=== PATIENT | male | born 1960 | race Caucasian/White ===

== ENCOUNTER 2016-11-19 10:43 | Inpatient (IN) | payer OTHER ==
[2016-11-01 09:04] VITALS: BMI 47.0
--- NOTE | 2016-11-01 09:27 | PAT Medication Instructions ---
Service Date Nov 01, 2016. Current Home Medication List Diphenhydramine-Acetaminophen (Tylenol Pm), 2 TAB PO HS Fluoxetine (Prozac), 20 MG PO QAM Levothyroxine Sodium (Synthroid), 25 MCG PO QAM Medication Instructions For Your Scheduled Surgery - Take the following medications the morning of surgery with a sip of water OTHERWISE NOTHING TO EAT OR DRINK AFTER MIDNIGHT: Levothyroxine Sodium (Synthroid), 25 MCG PO QAM Fluoxetine (Prozac), 20 MG PO QAM - Take the following medications as scheduled the night before surgery: Diphenhydramine-Acetaminophen (Tylenol Pm), 2 TAB PO HS If you have any questions please call us at [phone] or [phone] or [phone]
--- NOTE | 2016-11-01 10:11 | DIAGNOSTIC IMAGING REPORT ---
TWO VIEW CHEST CLINICAL HISTORY: Preoperative examination. FINDINGS: PA and lateral chest radiographs are obtained. No prior studies are available for comparison at the time of dictation. Of the Examination is degraded by large body habitus. The PA view is degraded by apical and out of positioning. The heart is top normal for projection. The pulmonary vasculature is noncongested. The lungs and pleural spaces are clear. There is no pneumothorax. The bony thorax appears intact. Degenerative change is seen throughout the thoracic spine. Arthritic change is present in the left shoulder. IMPRESSION: No active disease in the chest. Electronically signed by: Simon Cardenas M.D. 11/01/2016 10:10 AM Dictated Date/Time: 11/01/2016 10:09 AM
[2016-11-01 10:13] LABS: BASO % 0.9 %; BASO ABS # 0.05 K/uL (0-0.2); COMPLETE YES; EOS % 1.6 %; HEMATOCRIT 41.2 % (42-52); IG% 0.5 %; LYMPH % 36.2 %; LYMPH ABS # 2.01 K/uL (1.2-3.4); MEAN CELL VOLUME 87.3 fL (80-100); MEAN CORPUSCULAR HEMOGLOBIN 28.4 pg (25-34); MEAN CORPUSCULAR HGB CONC 32.5 g/dl (32-36); MEAN PLATELET VOLUME 10.7 fL (7.4-10.4); MONO % 6.8 %; PLATELET COUNT 231 K/uL (130-400); RED BLOOD COUNT 4.72 M/uL (4.7-6.1); WHITE BLOOD COUNT 5.56 K/uL (4.8-10.8)
[2016-11-01 10:23] LABS: PARTIAL THROMBOPLASTIN RATIO 1.1; PROTHROMBIN TIME (PATIENT) 10.7 SECONDS (9.0-12.0)
[2016-11-01 10:31] LABS: BUN/CREATININE RATIO 25.6 (10-20); CALCIUM 8.8 mg/dl (8.5-10.1); CREATININE 0.89 mg/dl (0.60-1.40); POTASSIUM 4.2 mmol/L (3.5-5.1)
[2016-11-01 10:32] LABS: C-REACTIVE PROTEIN 1.08 mg/dl (0-0.29)
[2016-11-01 11:44] LABS: ESTIMATED AVERAGE GLUCOSE 120 mg/dl; HA1C FLAG Normal (Normal)
--- NOTE | 2016-11-15 11:56 | HISTORY & PHYSICAL EXAMINATION ---
DATE OF ADMISSION: 11/19/2016 CHIEF COMPLAINT: Left hip pain. HISTORY OF PRESENT ILLNESS: The patient is a 56-year-old gentleman from [place] who presents for surgical treatment of his left hip. He has a 2-year history of markedly increased left hip pain and discomfort to the point he has trouble getting around even with a cane for the past year. He has been seeing Dr. Nation and had an injection which helped very temporarily. Pain has become more disabling over time. He was asked to lose some weight before surgery. He lost about 70 pounds, but does not feel like he can lose any more. His pain is disabling. He has got groin and thigh pain. He cannot put his shoes and socks on. Walking tolerance is a block at best. He would like to have his left hip fixed. PAST MEDICAL HISTORY: 1. Hypothyroidism. 2. Sleep apnea with CPAP machine. 3. Obesity. PAST SURGICAL HISTORY: Carpal tunnel surgery. ALLERGIES: None. CURRENT MEDICINES: 1. Synthroid 25 mcg a day. 2. Fluoxetine 20 mg a day for anxiety. SOCIAL HISTORY: A 56-year-old gentleman. He is on [employer] disability. Lives by himself. He is . Came to clinic with his daughter. Rare alcohol intake. FAMILY HISTORY: Noncontributory. REVIEW OF SYSTEMS: Negative for diabetes, neurologic problems, vascular problems or bleeding disorders. Denies any chest pain, no shortness of breath. No history of DVT or PE. No fevers or weight loss. PHYSICAL EXAMINATION: GENERAL: Reveals a pleasant, middle-aged male. He looks to be in reasonably good health. HEAD, EYES, EARS, NOSE, AND THROAT EXAMINATION: Benign. NECK: Supple. No lymphadenopathy. LUNGS: Clear to auscultation. HEART: Regular rate and rhythm. ABDOMEN: Soft, nontender, nondistended. EXTREMITY EXAMINATION: Grossly neurovascularly intact except as follows: Examination of the left hip reveals the patient walks with a markedly antalgic gait. He comes in using a cane and even has trouble walking with it. His left leg is about 0.5 cm short compared to the right but it is difficult to assess due to his flexion contracture. He has got marked pain and stiffness with any type of hip motion. X-RAYS: X-rays of the left hip were reviewed. It shows advanced left hip DJD. He has complete loss of his joint space. He has got crumbling of the femoral head and cystic changes in the femoral head and acetabulum. He looks to have quite a bit disuse osteopenia of the femur. ASSESSMENT: A 56-year-old male with a 2-year history of markedly increased left hip pain and discomfort consistent with advanced hip arthritis. It does look like there is some degree of inflammatory component. We did check a sed rate and C-reactive protein, which are slightly high, but I do not think this is an infectious process. PLAN: We talked about treatment options. He would like to have his hip replaced. We will take him to the operating room and do a left total hip replacement. The risks and benefits of this procedure were explained to the patient and include but not limited to DVT, PE, , infection, neurological injury, vascular injury, bleeding problem, pain, limited range of motion, stiffness, failure to relieve symptoms, incomplete relief of symptoms, need for further surgery in the future, fracture, leg length inequality, nerve palsy, dislocation, etc. The patient understands and desires to proceed. Informed consent was obtained. As far as discharge plans, he is planning to be discharged hopefully to [facility] for a brief rehab stay postoperatively. We may have to put a cemented stem in his femur due to his poor bone stock. We will determine that at the time of surgery. I will see him back 2 weeks postop.
[~2016-11-19] VITALS: Ht 162.6 cm; Wt 124.7 kg
[2016-11-19] VITALS (12 sets, daily range): BP systolic 105–140; BP diastolic 42–76; PULSE 68–82; TEMP 36.3–37; O2SAT 93–98; Ht 162.6 cm; Wt 124.7 kg
[~2016-11-19 10:43] MED LIST: ACETAMINOPHEN 500 MG TAB PO SCH; BUPIVACAINE 0.5 % 5 MG/1 ML PF 10ML VIAL ONE; CEFAZOLIN 2000 MG/60 ML D5W 60 ML IV SCH; DIPH-437 PO; FAMOTIDINE 20 MG TAB PO SCH; FLUO20CA35 PO; GABAPENTIN 300 MG CAP PO SCH; LACTATED RINGER'S 1000ML 1,000 ML IV SCH; LACTATED RINGER'S 1000ML IV SCH; LEVO25TA PO; METOCLOPRAMIDE HCL 10 MG TAB PO SCH; SCOPOLAMINE 1.5 MG TDSY TD SCH; TRANEXAMIC ACID INJ 1,000 MG in SODIUM CHLORIDE 0.9% 100ML 100 ML IV SCH
--- NOTE | 2016-11-19 11:22 | History & Physical Bridge Note ---
H&P Re-Evaluation Bridge Note: I have examined the patient, reviewed the History & Physical and in the interval since the performance of the History & Physical I have noted the following changes of clinical significance: No changes noted
[2016-11-19] MEDS ORDERED: FENTANYL CITRATE INJ 50 MCG/1 ML 2 ML VIAL ONE (12:09)
[2016-11-19] MEDS ORDERED: MoRPHine SULFATE PF 1 MG/ML 10 ML AMP/VIAL ONE (12:09)
[2016-11-19] MEDS ORDERED: MIDAZOLAM HCL 1 MG/ML 2ML VIAL ONE ×3 (12:09→13:57)
[2016-11-19] MEDS ORDERED: LACTATED RINGER'S 1000ML 1,000 ML IV PRN (12:56)
[2016-11-19] MEDS ORDERED: ONDANSETRON INJ 2 MG/ML 2 ML VIAL IV PRN ×2 (13:00→15:30)
[2016-11-19] MEDS ORDERED: FENTANYL CITRATE INJ 50 MCG/1 ML 2 ML VIAL IV PRN (13:00)
[2016-11-19] MEDS: BUPIVACAINE/EPINEPHRINE 0.5% MPF 1:200,000 30 ML VIAL ONE ×2 (13:21→14:22)
[2016-11-19] MEDS ORDERED: BACITRACIN 50000 UNIT VIAL ONE (13:21)
[2016-11-19] MEDS ORDERED: CEFAZOLIN SOD 1 GM VIAL ONE (13:58)
[2016-11-19] MEDS ORDERED: NALOXONE HCL INJ 0.08 MG in SYRINGE 1.8 ML IV PRN (15:22)
[2016-11-19] MEDS ORDERED: SODIUM CHLORIDE 0.9% 1000ML 1,000 ML IV PRN (15:22)
[2016-11-19] MEDS ORDERED: NALBUPHINE HCL INJ 10 MG/ML AMP IV PRN (15:30)
[2016-11-19] MEDS ORDERED: MoRPHine SULFATE PF 1 MG/ML 10 ML AMP/VIAL EPI PRN (15:30)
[2016-11-19] MEDS ORDERED: MEPERIDINE HCL 25 MG/ML CARP IV PRN (15:30)
[2016-11-19] MEDS ORDERED: NALOXONE HCL 0.4 MG/1 ML VIAL/CARP IV PRN (15:30)
[2016-11-19] MEDS ORDERED: PROMETHAZINE HCL INJ 25 MG in SODIUM CHLORIDE 0.9% 50ML 50 ML IV PRN (15:30)
[2016-11-19] MEDS ORDERED: MoRPHine SULFATE 2 MG/ML CARP IV PRN (15:30)
[2016-11-19] MEDS ORDERED: DiphenhydrAMINE HCL 50 MG/ML VIAL IV PRN (15:30)
[2016-11-19] MEDS ORDERED: NO NARCOTICS OR SEDATIVES SCH (15:30)
--- NOTE | 2016-11-19 15:47 | [facility] Post Operative Brief Note ---
Immediate Operative Summary Operative Date Nov 19, 2016. Pre-Operative Diagnosis Left Hip Advanced Degenerative Joint Disease Post-Operative Diagnosis Left Hip Advanced Degenerative Joint Disease Procedure(s) Performed Left Uncemented Total Hip Replacement Surgeon Dr. Dale [employer] Surgeon(s) KEVIN Miranda Estimated Blood Loss 400 cc Findings Severe Hip DJD Fluids (cc crystalloids) 1800 cc Specimens A. Left Femoral Head Drains None Anesthesia Spinal Complication(s) None Disposition Recovery Room / PACU
[2016-11-19] MEDS ORDERED: MAGNESIUM HYDROXIDE SUSP 30 ML UDC PO PRN (16:00)
[2016-11-19] MEDS ORDERED: ALUMINUM/MAGNESIUM/SIMETH (MAALOX MAX) 30 ML UDC PO PRN (16:00)
[2016-11-19] MEDS ORDERED: SILVER SULFADIAZINE 1% CR 50 GM JAR EXT PRN (16:00)
[2016-11-19] MEDS ORDERED: BISACODYL 10 MG SUPP PR PRN (16:00)
--- NOTE | 2016-11-19 16:12 | Anesthesiology Progress Note ---
Anesthesia Post Op Note Date & Time Nov 19, 2016 at 16:11 Vital Signs Pain Intensity: 0 Vital Signs Past 12 Hours Date Time Temp Pulse Resp B/P Pulse Ox O2 Delivery O2 Flow Rate FiO2 11/19/16 16:05 64 16 131/83 98 Nasal Cannula 2 11/19/16 15:55 65 16 111/76 99 Mask 10 11/19/16 15:46 36.6 67 16 131/62 100 Mask 10 11/19/16 11:13 36.7 82 20 118/42 97 Room Air Notes Mental Status: alert / awake / arousable, participated in evaluation Pt Amnestic to Procedure: Yes Nausea / Vomiting: adequately controlled Pain: adequately controlled Airway Patency, RR, SpO2: stable & adequate BP & HR: stable & adequate Hydration State: stable & adequate Neuraxial Anesthesia: was administered, sensory block is resolving Anesthetic Complications: no major complications apparent
--- NOTE | 2016-11-19 16:43 | DIAGNOSTIC IMAGING REPORT ---
LEFT PELVIS/UNILATERAL HIP 1 VIEW CLINICAL HISTORY: IN PACU - A/P PELVIS and LATERAL HIP INCLUDING ALL OF IMPLANT hip replacement COMPARISON: None. DISCUSSION: Patient is status post total hip arthroplasty. Good contact between prosthetic and underlying bone. There is no evidence for soft tissue swelling. IMPRESSION: Anatomic alignment status post total left hip arthroplasty Electronically signed by: Kvng Fernández M.D. 11/19/2016 4:41 PM Dictated Date/Time: 11/19/2016 4:40 PM
[2016-11-19] MEDS: CHECK SCOPOLAMINE PATCH PLACEMENT SCH ×2 (17:47→23:39)
--- NOTE | 2016-11-19 18:29 | PROGRESS NOTE ---
DATE: 11/19/2016 SUBJECTIVE: A 56-year-old gentleman postop from a left total hip replacement. He is doing pretty well. Not having any pain yet. He has just got back to the floor. No chest pain or shortness of breath. Not feeling dizzy or lightheaded. OBJECTIVE: VITAL SIGNS: Temperature is 37.0. Vital signs stable. GENERAL: Physical examination reveals a healthy, pleasant, middle-aged male. He is sitting up in bed, talking to his family, and eating dinner. Looks comfortable. LUNGS: Clear to auscultation. HEART: Regular rate and rhythm. ABDOMEN: Soft, nontender, and nondistended. EXTREMITIES: Grossly neurovascularly intact except as follows. Examination of left hip and leg reveals the leg to be well aligned. Dressing is clean, dry and intact. Hip is located. He can dorsiflex and plantarflex his foot appropriately. X-RAYS: X-rays of the left hip from recovery room reviewed. It shows a left uncemented total hip arthroplasty. Components looked to be in good position. No signs of problems. ASSESSMENT: A 56-year-old gentleman postop from a left total hip replacement, doing well. His hip is located. He is neurologically intact. His pain is controlled. PLAN: 1. DVT prophylaxis including thigh-high TEDs, SCDs, and aspirin twice a day. 2. PT/OT. Weightbearing as tolerated. Left total hip protocol. 3. Pain control, doing pretty well with current pain regimen. 4. IV antibiotics x24 hours. 5. Disposition: He is okay to be discharged to home with likely some home health once adequately recovered.
[2016-11-19] MEDS: D5W AND 1/2NSS + 20MEQ KCL 1,000 ML IV SCH (18:32)
[2016-11-19] MEDS: FERROUS GLUCONATE 324 MG TAB PO SCH (18:33)
[2016-11-19] MEDS: ASPIRIN 325 MG ECTAB PO SCH (20:18)
[2016-11-19] MEDS: DOCUSATE SODIUM 100 MG CAP PO SCH (20:19)
[2016-11-19] MEDS: CEFAZOLIN IV 2,000 MG in DEXTROSE 5% 50ML 50 ML IV SCH (20:48)
[2016-11-19] MEDS: ACETAMINOPHEN 500 MG TAB PO SCH (20:49)
[2016-11-19] MEDS: KETOROLAC TROMETHAMINE 30 MG/ML VIAL IV. SCH (20:49)
[2016-11-19] MEDS ORDERED: TRANEXAMIC ACID INJ 1,000 MG in SODIUM CHLORIDE 0.9% 100ML 100 ML IV ONE (22:00)
--- NOTE | 2016-11-19 22:43 | OPERATIVE REPORT ---
DATE OF OPERATION: 11/19/2016 SURGEON: Alvin Dale MD. USABILITY ENGINEER: KEVIN Flowers. PREOPERATIVE DIAGNOSIS: Left hip degenerative joint disease. POSTOPERATIVE DIAGNOSIS: Same. PROCEDURE PERFORMED: Left uncemented ceramic on highly cross-linked polyethylene total hip arthroplasty. COMPLICATIONS: None. ESTIMATED BLOOD LOSS: 400 mL FLUID REPLACEMENT: 1800 mL crystalloid fluid replacement. ANESTHESIA: Spinal. DRAINS: None. SPECIMEN: Left femoral head sent for pathology. OPERATIVE INDICATIONS: The patient is a 56-year-old gentleman who has had a several-year history of markedly increased left hip pain and discomfort and difficulty getting around. Over the past year or so, he has had to resort to using a cane, even a walker to get around. X-rays showed marked destruction of his hip joint. He had a very stiff hip with about a 20- to 25-degree external rotation contracture with a flexion contracture. He had a lot of bone around his acetabulum. The patient failed conservative care and elected to proceed with operative treatment. OPERATIVE FINDINGS: Operative findings revealed advanced left hip DJD. He had erosive changes of the entire femoral head and acetabulum. He had extensive osteophytes around the acetabulum, especially anteriorly. He did have some posterior wall deficiency. He had extensive ossification of his labrum. He had a very stiff hip with about 25-degree external rotation contracture. This patient's large size and stiff hip made this procedure extremely and exceedingly difficult. OPERATIVE IMPLANTS: Operative implants consisted of: 1. A Biomet G7 size 56 mm acetabular shell. 2. An apex hole eliminator. 3. A highly cross-linked polyethylene liner with 56 mm outer diameter, 36 mm inner diameter, with a zimmerman placed inferior and posterior. 4. 6.5 cancellous acetabular screws, one of 35 mm length and one of 25 mm length. 5. A DePuy Ulster size 5 high offset uncemented femoral stem. 6. A +5/36 mm ceramic articular ball. OPERATIVE PROCEDURE: The patient was taken to the operating room, identified and placed on the operating table in supine position. All contact areas were appropriately padded. IV antibiotics were provided by anesthesia team. A spinal anesthetic had been implemented in the holding area. Orozco catheter was placed in sterile fashion. The patient was then placed in the right lateral decubitus position. An axillary roll was placed. A Stulberg hip positioner was used for positioning. The left hip and leg were then prepped and draped in the usual sterile fashion. A posterolateral approach to the left hip was then performed through a curvilinear incision centered over the greater trochanter. Sharp dissection was carried through the subcutaneous tissue down to the level of the IT band and gluteal fascia. The IT band and gluteal fascia were incised longitudinally in line with the skin incision. The greater trochanteric bursa was excised. The posterior capsule and external rotators were then released from the posterior aspect of the femur as a single sleeve. I had to do this essentially blindly as I could not internally rotate his hip enough to visualize them. I kept right on bone to make sure that I got them as close to the base of the femoral neck as possible. After releasing, great care was taken throughout the procedure to protect the sciatic nerve at all times. After releasing the posterior capsule and external rotators, I had to incise the superior capsule and then was eventually able to internally rotate the hip and dislocate the femoral head. Femoral neck osteotomy cut was then made, the final cut about 7 mm above the lesser trochanter. The femoral head was removed and sent for pathology. I then had to release the capsule anterosuperiorly and inferiorly in order to retract the femur anteriorly. The acetabulum was then exposed. The acetabulum labrum which was ossified was excised. Sequential reaming of the acetabulum was then performed beginning with a size 51 and progressing up to 55. A 56 mm Biomet G7 acetabular shell was then placed in about 40 degrees of lateral opening and 20 degrees of anteversion. It was fixed with two 6.5 cancellous acetabular screws. A large anterior osteophyte was removed. Once again, he had a little bit of posterior wall deficiency. I did take great care not to ream posteriorly. A trial liner was placed. Attention was then drawn to the femur. The proximal femur was entered with a cookie cutter, followed by canal finder and lateralizing reamer. I reamed up to a size 5 implant. I then broached beginning with a size 3 and progressing up to a 5. We got excellent metaphyseal fit. I knew the diaphysis was wide but this was a metaphyseal fitting implant and we had difficulty even getting the 5 down. A calcar reamer was used to smoothen off the calcar. We trialed the hip and the +5/36 mm articular ball provided appropriate leg lengths. I did use the high offset stem in order to maximize stability and soft tissue tension. There was a tendency to lever out on the anterior bony tissues. I removed all the osteophyte I could and there was just a lot of redundant tissue anteriorly. The hip was fully stable in full extension and external rotation, flexion to 90 degrees, and internal rotation to about [address] a zimmerman inferior and posterior to maximize stability in flexion. Attention was then drawn toward placing these implants. All trial implants were removed. The apex hole eliminator was placed. Highly cross-linked polyethylene liner with a zimmerman placed inferior and posterior then was placed. A size 5 high offset Ulster femoral stem was impacted into position. A +5/36 mm ceramic articular ball was placed. The hip was once again located. Attention was then drawn toward closing. The wound was irrigated with copious amounts of pulsatile lavage solution. There was essentially no real posterior capsule to repair as it was completely ossified. I did put some #2 Ti-Cron sutures in what was left of the posterior capsule and repaired it through drill holes in the posterior trochanter. The IT band and gluteal fascia were then closed with #1 PDS suture in a running fashion. The subcutaneous tissues were then closed with 2 layers, the deep layer with #2 Vicryl suture and the subcutaneous tissues with 2-0 Dexon suture in a buried interrupted fashion. The skin was closed with skin pippa. Leg was then cleaned and dried and a sterile dressing of Xeroform, 4 x 4's, sterile ABD pad and foam tape was applied. The patient was then transferred to the recovery room in stable condition. The patient tolerated the procedure well with no complications. All needle and sponge counts were correct at the end of the operation. I attest to the content of the Intraoperative Record and any orders documented therein. Any exceptions are noted below. MIGUEL
[2016-11-20] VITALS (16 sets, daily range): BP systolic 78–160; BP diastolic 47–65; PULSE 63–88; TEMP 36.5–37; O2SAT 94–98
[2016-11-20] MEDS: D5W AND 1/2NSS + 20MEQ KCL 1,000 ML IV SCH ×3 (02:14→15:31)
[2016-11-20] MEDS: KETOROLAC TROMETHAMINE 30 MG/ML VIAL IV. SCH ×4 (03:48→21:36)
[2016-11-20 05:37] LABS: BASO % 0.3 %; BASO ABS # 0.02 K/uL (0-0.2); COMPLETE YES; EOS % 0.9 %; HEMATOCRIT 32.4 % (42-52); IG% 0.3 %; LYMPH % 17.1 %; LYMPH ABS # 1.27 K/uL (1.2-3.4); MEAN CELL VOLUME 89.3 fL (80-100); MEAN CORPUSCULAR HEMOGLOBIN 29.2 pg (25-34); MEAN CORPUSCULAR HGB CONC 32.7 g/dl (32-36); MEAN PLATELET VOLUME 10.8 fL (7.4-10.4); MONO % 9.2 %; NEUT % 72.2 %; PLATELET COUNT 181 K/uL (130-400); RED BLOOD COUNT 3.63 M/uL (4.7-6.1); WHITE BLOOD COUNT 7.42 K/uL (4.8-10.8)
[2016-11-20] MEDS: ACETAMINOPHEN 500 MG TAB PO SCH ×3 (05:37→21:37)
[2016-11-20] MEDS: CEFAZOLIN IV 2,000 MG in DEXTROSE 5% 50ML 50 ML IV SCH (05:37)
[2016-11-20] MEDS: LEVOTHYROXINE 25 MCG TAB PO SCH (05:38)
[2016-11-20 05:52] LABS: BUN/CREATININE RATIO 21.7 (10-20); CALCIUM 7.8 mg/dl (8.5-10.1); CREATININE 0.92 mg/dl (0.60-1.40)
[2016-11-20] MEDS ORDERED: OXYCODONE HCL IR 5 MG TAB (IMMEDIATE RELEASE) PO PRN (07:00)
[2016-11-20] MEDS ORDERED: DC INTRASPINAL MORPHINE ONE (07:00)
[2016-11-20] MEDS ORDERED: METOCLOPRAMIDE HCL INJ 5 MG/ML 2 ML VIAL IV PRN (07:00)
[2016-11-20] MEDS ORDERED: MoRPHine SULFATE 2 MG/ML CARP IV PRN (07:00)
[2016-11-20] MEDS ORDERED: ZOLPIDEM TARTRATE 5 MG TAB PO PRN (07:00)
[2016-11-20] MEDS ORDERED: ONDANSETRON INJ 2 MG/ML 2 ML VIAL IV PRN (07:00)
[2016-11-20] MEDS ORDERED: DiphenhydrAMINE HCL 50 MG/ML VIAL IV PRN (07:00)
[2016-11-20] MEDS: CHECK SCOPOLAMINE PATCH PLACEMENT SCH ×2 (08:00→15:33)
--- NOTE | 2016-11-20 08:11 | PROGRESS NOTE ---
DATE: 11/20/2016 SUBJECTIVE: A 56-year-old gentleman postop day 1 from a left hip replacement. He is doing well. Not having much pain. No chest pain or shortness of breath. Had a good night. Not feeling dizzy or lightheaded. OBJECTIVE: VITAL SIGNS: Temperature 36.9. Vital signs stable. A little hypotensive with blood pressure 80/47. GENERAL: Physical examination reveals a healthy, pleasant, middle-aged male. He is sitting up in bed and looks comfortable. LUNGS: Clear to auscultation. HEART: Regular rate and rhythm. ABDOMEN: Soft, nontender, nondistended. EXTREMITIES: Grossly neurovascularly intact except as follows: Examination of the left lower extremity reveals the leg to be well aligned. Hip is located. He can dorsiflex and plantarflex his foot appropriately. He is neurologically intact. LABORATORY DATA: Hemoglobin 10.6. Hematocrit 32.4. Electrolytes are stable. ASSESSMENT: A 56-year-old gentleman postop day 1 from a left total hip replacement, doing well. His pain is controlled. A little hypotensive, but asymptomatic. PLAN: 1. DVT prophylaxis including thigh-high TEDs, SCDs, and aspirin twice a day. 2. PT/OT. Weightbearing as tolerated. Left total hip protocol. 3. Pain control, doing well with current pain regimen. 4. Anemia: will continue iron supplementation. No need for transfusion. 5. Disposition: He is hoping to be discharged to a friend's house with some home health versus may be going to [facility] if therapy is not going well. We will see how therapy goes today.
[2016-11-20] MEDS: PANTOprazole SOD 40 MG TAB PO SCH (08:35)
[2016-11-20] MEDS: FLUOXETINE HCL 20 MG CAP PO SCH (08:35)
[2016-11-20] MEDS: MULTIVITAMIN TAB PO SCH (08:36)
[2016-11-20] MEDS: FERROUS GLUCONATE 324 MG TAB PO SCH ×3 (08:36→16:59)
[2016-11-20] MEDS: ASPIRIN 325 MG ECTAB PO SCH ×2 (08:36→20:32)
[2016-11-20] MEDS: DOCUSATE SODIUM 100 MG CAP PO SCH ×2 (08:36→20:32)
--- NOTE | 2016-11-20 08:48 | Anesthesiology Progress Note ---
Anesthesia Post Op Note Date & Time Nov 20, 2016 at 08:47 Vital Signs Pain Intensity: 0.0 Vital Signs Past 12 Hours Date Time Temp Pulse Resp B/P Pulse Ox O2 Delivery O2 Flow Rate FiO2 11/20/16 08:33 77 90/56 11/20/16 07:11 65 95/60 97 Room Air 11/20/16 07:03 36.9 66 18 78/47 95 Room Air 11/20/16 07:00 18 98 11/20/16 07:00 Room Air 11/20/16 06:37 16 95 11/20/16 05:35 20 95 11/20/16 03:58 36.5 75 18 109/54 95 Room Air 11/20/16 03:47 24 95 11/20/16 02:31 16 96 11/20/16 01:36 16 95 11/20/16 00:35 24 94 11/19/16 23:40 20 93 11/19/16 23:35 CPAP 11/19/16 23:15 36.9 71 18 112/56 93 CPAP 11/19/16 22:15 18 95 Nasal Cannula 2.0 11/19/16 21:13 20 96 Nasal Cannula 2.0 Notes Mental Status: alert / awake / arousable, participated in evaluation Pt Amnestic to Procedure: Yes Nausea / Vomiting: adequately controlled Pain: adequately controlled Airway Patency, RR, SpO2: stable & adequate BP & HR: stable & adequate Hydration State: stable & adequate Neuraxial Anesthesia: sensory block resolved Anesthetic Complications: no major complications apparent
[2016-11-20] MEDS: TAPENTADOL ER 50 MG TABCR PO SCH ×2 (09:00→20:32)
[2016-11-20] MEDS ORDERED: ASPEC325 PO (20:07)
[2016-11-20] MEDS ORDERED: FRRG PO (20:07)
[2016-11-20] MEDS ORDERED: OXYC-57 PO (20:09)
--- NOTE | 2016-11-20 20:11 | Discharge Instructions ---
Discharge Instructions Date of Service Nov 20, 2016. Admission Reason for Admission: Left Hip Degenerative Joint Disease Discharge Discharge Diagnosis / Problem: Left Hip Replacement Discharge Goals Goal(s): Decrease discomfort, Improve function, Increase independence, Improve disease control, Therapeutic intervention Activity Recommendations Activity Limitations: per Instructions/Follow-up section Weightbearing Status: Left weightbearing . Instructions / Follow-Up Instructions / Follow-Up ACTIVITY RECOMMENDATIONS: Physical Therapy: * Aggressive physical therapy is not usually needed. You will learn to take care of yourself safely and walk. * Follow the "Hip Precautions Instructions." * In some cases, the social services counselor at the hospital will arrange to have a therapist come to your house for the first couple of weeks to help you learn these skills. * You need to practice on your own or with the help of a family member as needed. * When you learn these skills, most of the therapy can be done on your own. Home Exercise: * You were shown a series of exercises in the hospital. Do these exercises three to four times each day including the exercises you were shown in physical therapy. Walking: * Get up and walk several times each day. For the first four weeks, try not to stand or walk for more than one hour at a time. If you do stand or walk for more than one hour, you will not hurt anything, but your leg will likely swell. * As you feel comfortable, you may change from the walker or crutches to a cane and then to independent walking. MEDICATIONS: New Medicine: * You will likely be taking one or more of these medicines: 1. Percocet - Take, as directed, when you need it, every four to six hours to control your pain. 2. Iron Sulfate - Take three times each day for the month after surgery to help you replace the blood lost during surgery. 3. Aspirin - Thins your blood to lessen the chance of forming a blood clot. * The most common side effects of pain medicine and iron are nausea and constipation. If nausea or constipation is too much of a problem or if you have any questions about your new medicines or doses, call [facility] at . We will try to help you manage these issues. VERY IMPORTANT TO READ AND REVIEW" Pain: * The immediate post-operative period after hip replacement surgery is often quite painful. * You are given a prescription for pain medicine. You should take it, as directed, when you need it, especially before physical therapy and before going to bed. Pain that interferes with sleep is very common and can last several months. * You will likely need pain medicine for the first two to four weeks. It will not stop all of the pain. The pain will lessen and as you feel better, you may change to milder pain medicine such as Tylenol. * The most common side effects of pain medicine are nausea and constipation, so don't take more than you need. SPECIAL CARE INSTRUCTIONS: TEDs/Elastic Stockings: * The white elastic stockings help limit swelling and prevent blood clots from forming in your legs. The more you wear them, the more they work. * Wear them for six weeks. Prevention of Infection: * Take antibiotics one hour before any dental cleaning, dental work, urological procedure, gastrointestinal procedure or any invasive surgery in order to prevent your new joint from getting infected. * You may get the antibiotics from the doctor performing the procedure or you may call our office at before and we will call in a prescription to the pharmacy of your choice. Things to Watch For: * Drainage from the incision site that occurs more than one week after your surgery. * Severely increased leg pain or swelling. * Increased redness at the incision site. * Fever above 102 degrees Fahrenheit. * Unusual chest pain or shortness of breath. * Unusual pain or burning with urination. Call [facility] at with any of the above problems or if you have any questions about your medicines or recovery. FOLLOW UP VISIT: Make an appointment to see your doctor for approximately two weeks after surgery for a progress check and staple removal by calling the office at . Current Hospital Diet Patient's current hospital diet: Regular Diet Discharge Diet Recommended Diet: Regular Diet Procedures Procedures Performed: Left Uncemented Total Hip Replacement Pending Studies Studies pending at discharge: no Laboratory Results Hemoglobin A1c Test 11/01/16 09:32 Range/Units Estimated Average Glucose 120 mg/dl Hemoglobin A1c 5.8 H 4.5-5.6 % Medical Emergencies . Who to Call and When: Medical Emergencies: If at any time you feel your situation is an emergency, please call [phone] immediately. . Non-Emergent Contact Non-Emergency issues call your: Surgeon . "Provider Documentation" section prepared by Alvin Dale. VTE Core Measure Inpt VTE Proph given/why not?: Other Anticoagulation, Radha Mcguire, SCD's
[2016-11-21] MEDS: CHECK SCOPOLAMINE PATCH PLACEMENT SCH
[2016-11-21] MEDS: KETOROLAC TROMETHAMINE 30 MG/ML VIAL IV. SCH ×2 (03:44→09:38)
[2016-11-21] MEDS: LEVOTHYROXINE 25 MCG TAB PO SCH (05:41)
[2016-11-21] MEDS: ACETAMINOPHEN 500 MG TAB PO SCH (05:41)
[2016-11-21 07:22] VITALS: BP 122/65; PULSE 75; TEMP 36.9; O2SAT 96
--- NOTE | 2016-11-21 07:28 | PROGRESS NOTE ---
DATE: 11/21/2016 SUBJECTIVE: 56-year-old gentleman postop day 2 from a left total hip replacement. He is doing well. Pain is controlled. Denies any chest pain or shortness of breath. OBJECTIVE: VITAL SIGNS: Temperature 36.8. Vital signs stable. PHYSICAL EXAMINATION: GENERAL: Reveals a healthy, pleasant, middle-aged male. He is lying in bed and looks pretty comfortable. EXTREMITIES: Examination of left hip reveals the wound to be clean, dry and intact. Hip is located. He is neurologically intact. ASSESSMENT: 56-year-old gentleman postop day 2 from a left total hip replacement, doing well. Pain is controlled. PLAN: 1. DVT prophylaxis including thigh-high TEDs, SCDs, and aspirin twice a day. 2. PT/OT. Weightbearing as tolerated. Left total hip protocol. 3. Pain control. Doing well with current pain regimen. 4. Disposition: I am going to discharge him to home. He is going to go stay with a friend and is going to have some home health.
[2016-11-21] MEDS: FLUOXETINE HCL 20 MG CAP PO SCH (08:41)
[2016-11-21] MEDS: FERROUS GLUCONATE 324 MG TAB PO SCH (08:41)
[2016-11-21] MEDS: PANTOprazole SOD 40 MG TAB PO SCH (08:41)
[2016-11-21] MEDS: MULTIVITAMIN TAB PO SCH (08:41)
[2016-11-21] MEDS: ASPIRIN 325 MG ECTAB PO SCH (08:41)
[2016-11-21] MEDS: DOCUSATE SODIUM 100 MG CAP PO SCH (08:41)
[2016-11-21] MEDS: TAPENTADOL ER 50 MG TABCR PO SCH (08:42)
[2016-11-21 11:23] VITALS: BP 122/65; PULSE 75; TEMP 36.9; O2SAT 96
--- NOTE | 2016-11-27 15:28 | DISCHARGE SUMMARY ---
ADMITTING PHYSICIAN AND SURGEON: Dr. Dale. ADMITTING DIAGNOSIS: Left hip degenerative joint disease. SURGERY PERFORMED: Left total hip arthroplasty. SECONDARY DIAGNOSES: Includes hypothyroidism, sleep apnea, and obesity. CONSULTS: None obtained. HISTORY AND PHYSICAL EXAMINATION: Well documented in patient's chart. HOSPITAL COURSE: The patient was admitted on 11/19/2016, underwent total hip arthroplasty, tolerated the procedure well. There were no complications. He was transferred to the PACU postoperatively and later to the orthopedic floor for further care. He was given Ancef for antibiotic prophylaxis, CHULA stockings, SCDs and aspirin for DVT prophylaxis. Hemoglobin, hematocrit and vital signs were monitored during his hospital stay and remained stable. He developed some mild postoperative anemia, did not require any blood transfusions. There were no complications. By postoperative day 2, he was tolerating a general diet, pain was controlled with oral pain medicine. He was participating in physical therapy and had no signs or symptoms of deep vein thrombosis. On postop day 2, he was discharged home in good condition, set up with home health services. He was given printed discharge instructions including prescriptions for aspirin 325 mg b.i.d., and iron supplement, and Percocet. Continue his home medications, continue physical therapy, weightbearing as tolerated. CHULA stockings, total hip precautions. Follow up in 10-12 days or sooner if there are any problems or concerns.
== END 2016-11-21 11:46 | disposition home or self-care (01) | DRG 470 ==
LOC: ENRESERVDT → ENRESERVTM → C.ACU 10:43 → C.3E 11:31
PROVIDERS: ADMIT Orthopaedic Surgery Sports Medicine; ATTEND Orthopaedic Surgery Sports Medicine
PROC: 0SRB04A Replacement of Left Hip Joint with Ceramic on Polyethylene Synthetic Substitute, Uncemented, Open Approach (ICD-10-PCS; principal; 2016-11-19 13:00)
DX: M16.12 Unilateral primary osteoarthritis, left hip (principal); Z68.42 Body mass index [BMI] 45.0-49.9, adult; E03.9 Hypothyroidism, unspecified; E66.9 Obesity, unspecified; G47.30 Sleep apnea, unspecified

== ENCOUNTER 2019-10-26 05:03 | Observation (INO) ==
--- NOTE | 2019-09-24 12:33 | PAT Medication Instructions ---
Medication Instructions Date of Service September 24, 2019 Home Medications diphenhydramine-acetaminophen [Tylenol PM Extra Strength] 3 tab PO HS fluoxetine 20 mg PO QAM levothyroxine 25 mcg PO QAM Take morning of surgery With a small sip of water, OTHERWISE NOTHING TO EAT OR DRINK AFTER MIDNIGHT: fluoxetine 20 mg PO QAM levothyroxine 25 mcg PO QAM Take evening before surgery diphenhydramine-acetaminophen [Tylenol PM Extra Strength] 3 tab PO HS Other Notes If you have any questions please call us at [phone] or [phone] or [phone] or [phone]
--- NOTE | 2019-09-27 08:34 | Anesthesiology Consultation ---
Date of Service September 27, 2019 Assessment & Plan (1) Encounter for pre-operative examination: *LIKELY DIFFICULT SPINAL DUE TO BODY HABITUS -- R TKA 2018: SAB successful after 2 attempts; SONALI 2017: SAB successful after 3 attempts. Chart Review Chart Review: Acceptable Risk for Surgery and Patient seen in Pre Admission Testing Teaching & Discussion Instructed NPO after midnight before surgery, except medications with 15 cc of water. Medication instructions provided according to the PAT guidelines. History Surgery Operation Date: 10/26/19 09:05 Proposed Procedures p Left Total Knee Arthroplasty - Alvin Dale MD Height/Weight Height: 5 ft 5 in Weight: 139.3 kg Allergies Allergy/AdvReac Type Severity Reaction Status Date / Time No Known Allergies Allergy Verified 09/16/19 08:30 Medications Home Medications Medication Instructions Recorded Confirmed Last Taken diphenhydramine-acetaminophen 3 tab PO HS 06/10/18 09/16/19 07/16/18 22:30 [Tylenol PM Extra Strength] fluoxetine 20 mg PO QAM 06/10/18 09/16/19 10/16/18 levothyroxine 25 mcg PO QAM 06/10/18 09/16/19 10/16/18 Past Medical History Medical History Anxiety History of kidney stones Hypothyroidism Morbid obesity Osteoarthritis Sleep apnea CPAP Exercise / Class Metabolic Activity II 4-5 Yardwork/Stairs/Walk up hill (Denies CP or SOB with 1 FOS, 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 2016, SAB successful (3 attempts). Past Anesthesia History No Hx of Anesthesia Complications and No Family Hx of Anesthesia Complications History of PONV No Hx of PONV and Hx of Motion Sickness (used to, not since started using CPAP) Social History Smoking Status: Never smoker tobacco type: cigars (very rare) Do You Dip or Chew Tobacco: No (HX OF 30+YRS AGO , NONE CURRENT) Hx Alcohol Use: No Hx Substance Use: No substance use type: does not use Review of Systems Pt denies any recent chest pain, shortness of breath, palpitations, cough, fever or URI. Physical Exam Vital Signs BP: 116/75 P: 69bpm SPO2: 95% RA T: 98.0 F R: 16 Constitutional + morbidly obese ENVA Mouth: + chipped teeth (broken molar, to be removed 3/3); no dental restorations and no loose teeth Thyromental Distance: > or= 3.5 Finger Breadths (3.5) Mallampati Class: III To have tooth removed 3/3, upper L first molar. Pt advised to make surgeon aware of upcoming dental work. Neck + short neck and + thick neck; neck extension not limited Respiratory normal respiratory effort Auscultation: lungs clear to auscultation bilaterally Cardiovascular Rate/Rhythm: regular rate and regular rhythm Heart Sounds: no murmur Testing Laboratory Results 09/27/19 08:49 09/27/19 08:49 PT 10.3 Seconds (9.0-12.0) 09/27/19 08:49 INR 1.0 (0.9-1.1) 09/27/19 08:49 APTT 25.0 Seconds (21.0-31.0) 09/27/19 08:49 Blood Type A Positive 09/27/19 08:49 Antibody Screen NEGATIVE 09/27/19 08:49 Electrocardiogram Date: 09/27/19 Findings: + NSR @ (67) Left axis deviation. RBBB. No significant change from 06/16/18 EKG. Chest X-Ray Date: 09/27/19 Findings: + NAD
--- NOTE | 2019-09-27 09:32 | XRay Report ---
XR chest Pre-admission PA/Lat CLINICAL HISTORY: Preoperative chest COMPARISON STUDY: 06/16/2018 FINDINGS: The heart is at the upper limits of normal in size. There is mild aortic tortuosity. There is no failure. There is no focal pulmonary consolidation. There are no pleural effusions.[ IMPRESSION: No active disease in the chest. ACT 112: Negative or not required by law. Electronically signed by: Olman Avitia M.D. 09/27/2019 9:31 AM
[2019-09-27 10:41] LABS: Basophils # (auto) 0.03 K/uL (0-0.2); Basophils % (auto) 0.5 %; Eosinophils # (auto) 0.11 K/uL (0-0.5); Eosinophils % (auto) 1.8 %; Hematocrit (blood only) 42.5 % (42-52); Hemoglobin 13.9 g/dL (14.0-18.0); Immature Granulocytes # (auto) 0.02 K/uL (0.00-0.02); Immature Granulocytes % (auto) 0.3 %; Lymphocytes # (auto) 1.99 K/uL (1.2-3.4); Lymphocytes % (auto) 33.4 %; Mean Corpuscular Hemoglobin 29.8 pg (25-34); Mean Corpuscular Hgb Conc 32.7 g/dL (32-36); Mean Platelet Volume 11.8 fL (7.4-10.4); Monocytes # (auto) 0.63 K/uL (0.11-0.59); Monocytes % (auto) 10.6 %; Neutrophils # (auto) 3.17 K/uL (1.4-6.5); Neutrophils % (auto) 53.4 %; Platelet Count 236 K/uL (130-400); RDW Coefficient of Variation 15.2 % (11.5-14.5); RDW Standard Deviation 50.8 fL (36.4-46.3); Red Blood Count 4.67 M/uL (4.7-6.1); White Blood Count 5.95 K/uL (4.8-10.8)
[2019-09-27 10:45] LABS: BUN Creatinine Ratio 21.6 (10-20); C Reactive Protein 1.29 mg/dl (0-0.29); Calcium 9.5 mg/dl (8.5-10.1); Creatinine Clr Calc Pharmacy 108.1 ml/min; Est GFR (Non-African American) 87.2; Potassium 4.6 mmol/L (3.5-5.1)
[2019-09-27 10:46] LABS: Partial Thromboplastin Ratio 0.9; Prothrombin Time 10.3 Seconds (9.0-12.0)
--- NOTE | 2019-09-28 06:01 | Electrocardiogram Report ---
Test Reason : Blood Pressure : / mmHG Vent. Rate : 067 BPM Atrial Rate : 067 BPM P-R Int : 176 ms QRS Dur : 124 ms QT Int : 436 ms P-R-T Axes : 038 -44 006 degrees QTc Int : 460 ms Normal sinus rhythm Left axis deviation Right bundle branch block Abnormal ECG When compared with ECG of 16-JUN-2018 09:43, No significant change was found Confirmed by Sukh Richardson ([id number]) on 09/28/2019 6:01:01 AM Referred By: Alvin Dale Confirmed By:Sukh Richardson
--- NOTE | 2019-10-13 22:47 | History and Physical Report ---
DATE OF ADMISSION: 10/26/2019 CHIEF COMPLAINT: Left knee pain and discomfort. HISTORY OF PRESENT ILLNESS: The patient is a 59-year-old gentleman who is well known to me from a previous right knee replacement as well as left hip replacement. He has had long history of knee problems. He did have his right knee replaced back in July of 2018 and has done quite well from this. He also had his left hip replaced in 11/2016. He continues to be debilitated now by left knee pain and discomfort. He describes global pain. The more he walks, the more it hurts. He uses a cane to get around for the past couple years. He has had injections which provide temporary relief only. He is happy with his other joint replacements. He would like to have his left knee replaced. He has a very limited walking tolerance of about a block. He has difficulty going up and down steps. PAST MEDICAL HISTORY: 1. Sleep apnea with CPAP machine. 2. Obesity with BMI of 52. 3. Hypothyroidism. 4. Kidney stones. PAST SURGICAL HISTORY: Include: 1. Left hip replacement done in 11/2016. 2. Right knee replacement done 07/17/2018. 3. Carpal tunnel release. ALLERGIES: None. CURRENT MEDICINES: Include: 1. Tylenol No. 3 for pain. 2. Fluoxetine once a day. 3. Synthroid once a day. SOCIAL HISTORY: A 59-year-old male. 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 He lives in [place]. He does not smoke. No significant alcohol intake. FAMILY HISTORY: Noncontributory. REVIEW OF HISTORY: Negative for diabetes, neurologic problems, vascular problems or bleeding disorders. Denies any chest pain or shortness of breath. No bleeding problems. No history of PE. PHYSICAL EXAMINATION: GENERAL: Reveals a pleasant, large middle-aged male. He looks to be in reasonably good health. HEENT: Benign. NECK: Supple, no lymphadenopathy. LUNGS: Clear to auscultation. HEART: Regular rate and rhythm. ABDOMEN: Soft, nontender, nondistended. EXTREMITIES: Grossly neurovascularly intact except as follows: Examination of left knee reveals patient ambulates with a waddling gait. He has got varus alignment to his left knee. He has got bony hypertrophy medially. He has got about 10-degree flexion contracture and can flex to about 120 degrees. There is no instability. No pain with hip motion on this side. X-RAYS: X-rays of the left knee reviewed. Shows advanced left knee DJD. He has got complete loss of his medial joint space. He has got subchondral sclerosis. He has got osteophytes in all 3 compartments. 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 He has failed conservative treatment and would like to have his knee fixed. PLAN: We are going to take him to the operating room and do a left total knee replacement. The risks and benefits of this procedure were explained to the patient and include but not limited to DVT, PE, , infection, neurological injury, vascular injury, bleeding problem, pain, limited range of motion, stiffness, failure to relieve symptoms, incomplete relief of symptoms, need for further surgery in future, fracture, leg length inequality, nerve palsy, etc. The patient understands and desires to proceed. Informed consent was obtained. I did explain to him with his large size and BMI, he is at increased risk of infection and he is fully aware of this. I did talk to him about bringing his CPAP machine to the hospital. He is planning to be discharged to home once adequately recovered.
[2019-10-26] MEDS ORDERED: LR 500ML BOLUS, THEN 15ML/HR IV SCH (06:00)
[2019-10-26] MEDS ORDERED: CEFAZOLIN 3000MG 72.5 ML IV SCH (06:00)
[2019-10-26] MEDS ORDERED: TRANEXAMIC ACID 1,000 MG **IV Intra-op IV SCH (06:00)
[2019-10-26] MEDS ORDERED: GABAPENTIN 600 MG DOSE PO SCH (06:00)
[2019-10-26] MEDS ORDERED: FAMOTIDINE 20 MG TAB PO SCH (06:00)
[2019-10-26] MEDS ORDERED: BUPIVACAINE LIPOSOME/PF 266 MG, BUPIVACAINE/EPINEPHRINE 50 ML, SODIUM CHLORIDE 0.9% 30 ... INFIL SCH (06:00)
[2019-10-26] MEDS ORDERED: LR 60ML/HR IV SCH (06:00)
[2019-10-26] MEDS ORDERED: ACETAMINOPHEN 500 MG TAB PO SCH (06:00)
[2019-10-26] MEDS ORDERED: METOCLOPRAMIDE HCL 10 MG TABLET PO SCH (06:00)
[2019-10-26] MEDS ORDERED: SCOPOLAMINE 1.5 MG TDSY TD SCH (06:00)
[2019-10-26] MEDS ORDERED: ROPIVACAINE 0.5% 5 MG/ML 30 ML VIAL ONE (06:24)
[2019-10-26] MEDS ORDERED: BUPIVACAINE 0.5 % 5 MG/1 ML PF 10ML VIAL ONE (06:24)
[2019-10-26] MEDS ORDERED: MIDAZOLAM HCL 1 MG/ML 2ML VIAL ONE (06:25)
[2019-10-26] MEDS ORDERED: fentaNYL citrate 100 MCG/2 ML VIAL ONE (06:25)
[2019-10-26] MEDS ORDERED: BUPIVACAINE/EPINEPHRINE 0.25% 1:200,000 30 ML VIAL ONE (06:38)
[2019-10-26] MEDS ORDERED: SODIUM CHLORIDE 0.9% PF 50 ML VIAL ONE (06:38)
[2019-10-26] MEDS ORDERED: BACITRACIN INJ 50,000 UNIT VIAL ONE (06:38)
[2019-10-26] MEDS ORDERED: BUPIVACAINE LIPOSOME 1.3% 266 MG/20 ML VIAL ONE (06:38)
--- NOTE | 2019-10-26 06:49 | History & Physical Bridge Note ---
Date of Service October 26, 2019 History & Physical Bridge Note I have examined the patient, reviewed the History & Physical and in the interval since the performance of the History & Physical I have noted the following changes of clinical significance: no changes noted
[2019-10-26] MEDS ORDERED: PHENYLEPHRINE 100MCG/ML 5ML SYR ONE (07:32)
[2019-10-26] MEDS ORDERED: ATROPINE SULFATE 0.1 MG/ML 10ML SYR IV PRN (07:37)
[2019-10-26] MEDS ORDERED: ONDANSETRON INJ 2 MG/ML 2 ML VIAL IV PRN ×2 (07:37→10:40)
[2019-10-26] MEDS ORDERED: KETOROLAC 30 MG/ML VIAL IV PRN (07:37)
[2019-10-26] MEDS ORDERED: HYDROmorphone INJ 1 MG/ML SYRINGE IV PRN (07:37)
[2019-10-26] MEDS ORDERED: ePHEDrine sulfate 50 MG/ML AMP IV PRN (07:37)
--- NOTE | 2019-10-26 09:21 | Post Operative Brief Note ---
PG Immediate Post Op with CF Date of Surgery October 26, 2019 Pre & Post Diagnosis Operation Date: 10/26/19 07:00 Pre-Op Diagnosis: LEFT KNEE DEGENERATIVE JOINT DISEASE W/KNEE PAIN Post-Op Diagnosis: LEFT KNEE DEGENERATIVE JOINT DISEASE W/KNEE PAIN I identified the patient and participated in the time-out.: Yes Procedure Operation Date: 10/26/19 07:00 Actual Procedures p Left Total Knee Arthroplasty(Left) - Alvin Dale MD Surgeon Alvin Dale MD Terry Cloth Cutter Hand Gonzalo Lyons, PAC Estimated Blood Loss 50 Findings Consistent with Post-Op Diagnosis Fluids 1400 cc Specimens Specimen Description: Permanent Specimen: A) Left Knee Bone and Tissue Anesthesia Type Spinal MAC Complications none Disposition Accompanied Patient To Recovery: Yes Disposition: Recovery Room
--- NOTE | 2019-10-26 09:33 | Operative Report ---
Post Operative Report Pre & Post Diagnosis Operation Date: 10/26/19 07:00 Pre-Op Diagnosis: LEFT KNEE DEGENERATIVE JOINT DISEASE W/KNEE PAIN Post-Op Diagnosis: LEFT KNEE DEGENERATIVE JOINT DISEASE W/KNEE PAIN I identified the patient and participated in the time-out.: Yes Procedure Operation Date: 10/26/19 07:00 Actual Procedures p Left Total Knee Arthroplasty(Left) - Alvin Dale MD Surgeon Alvin Dale MD Medical Donation Professional Gonzalo Lyons, PAC Estimated Blood Loss 50 Findings Consistent with Post-Op Diagnosis Operative findings revealed advanced left knee DJD with extensive grade 4 [id number] disease of the medial and patellofemoral compartments. He had a varus deformity to his knee. Osteophytes in all 3 compartments. Moderate sized joint effusion. Fluids 1400 cc. Specimens Left knee sent for pathology. Drains None. 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 He said multiple joint replacements in the past. He has had known left knee advanced DJD for many years. He failed conservative treatment elected proceed with total knee arthroplasty. Description of Procedure Operative implants consist of: 1. Biomet Vanguard size 65 left posterior by femoral component. 2. Biomet size 71 tibial tray. 3. 10 mm posterior box polyethylene insert. 4. 31 x 8 all poly-patella. Patient was taken to the operating room identified and placed on the operating table supine position protectors were properly padded. IV antibiotics arrived by anesthesia team. Spinal anesthetic and abductor canal block had provided in the holding area. Orozco catheter was placed in sterile fashion to the left thigh turn was then placed in the left lower extremity was then prepped and draped in the usual sterile fashion. The left leg was elevated and exsanguinated with use of an Esmarch and turns placed at 300 mmHg. An anterior posterior left knee was then performed to longitudinal incision centered over the patella. Sharp dissection was cut through subcutaneous tissue down below the extensor mechanism. A medial parapatellar arthrotomy incision was made. Some subperiosteal dissection was carried out medially. The fat pad was dissected from each patella tendon. Lateral patellofemoral ligament was released. Patella was subluxated laterally. The knee was flexed. The osteophytes were taken off the distal femur. The ACL and PCL were then released from distal femur the tibia subluxated anteriorly. The external tibial alignment jig was then placed in the interface the tibia and adjusted 16 mm medially. Proximal tibial cut was made to move out 2 mm of bone from the most efficient aspect medial tibial plateau. Some osteophytes were taken off medial and posterior medially. Tibia sized to a size 71. Attention drawn the femur. The distal femur then with a sharp drop with intramedullary canal was suction. A left 6 degree valgus cutting guide was placed the distal femoral cutting block was pinned in place. Distal femoral cut was made to take an additional 3 mm of bone off distal femur. Femur was then sized to a size 65. The AP cutting block was pinned parallel to the epicondylar axis which was 5 degrees of external rotation. The anterior cut, anterior chamfer, posterior cut, posterior chamfer cuts were made. Box cutting guide was placed in just slight lateral and the box cut was made. The knee was flexed. The remnants of the medial lateral menisci were excised. The osteophytes were taken off the posterior aspect of the femur. A trial femoral component was placed. The tibial tray was pinned in maximum external rotation and the drill and stem punch were used to create defect in the proximal tibia for the tibial tray. Knee was then trialed and 10 mm insert fit most appropriately. Attention drawn the patella. The patella was cleaned of all soft tissue. Patella thickness measured 22 mm in thickness was cut down to 13. Was sized to a size 31 patella. Locals were drilled for 31 patella. Lateral osteophytes removed. Patella button was placed. The knee was taken through range of motion the patella tracked tracked well with no thumbs test. Attention drawn to placing the permanent components. All trial components were removed. Bone plug was placed in the distal femur limit blood loss put a double batch Palacos G cement was mixed. A Biomet Vanguard size 65 left posterior by femoral component, size 71 tibial tray, 10 mm posterior box polyethylene insert, and a 31 x 8 all poly-patella were then cemented in place. Knee was brought out in full extension total cement hardened. Final cement check was then performed. The pericapsular tissues were injected with total 100 cc of combination of 20 cc of Exparel, 30 cc of normal saline, 50 cc of quarter percent Marcaine with epinephrine. Patient did receive 1 g of tranexamic acid. The tourniquet was then let down for final tourniquet time 71 minutes. Hemostasis assured use electrocautery. The wound was once again irrigated. The extensor mechanism then closed with a combination of 1 PDS suture #1 Vicryl suture in figure-of- eight fashion. The extensor mechanism checked found to be intact the subcutaneous tissue then closed with 2 Dexon suture in a buried interrupted fashion skin was closed skin pippa. Leg was then cleaned and dried a sterile dressing composed of Xeroform, 4 x 4's, sterile cast padding, Igor bandage were applied. Patient then transferred to the recovery room in stable condition. Patient tolerated procedure well no complications. I attest to the content of the Intraoperative Record and any orders documented therein. Any exceptions are noted below.
--- NOTE | 2019-10-26 09:49 | XRay Report ---
LEFT KNEE 2 VIEWS History: Left total knee arthroplasty. Degenerative arthritis. Postop. FINDINGS: The patient is status post a left total knee arthroplasty. The hardware is intact. No fract ure or dislocation. Skin pippa are in place. IMPRESSION: Left total knee arthroplasty. No evidence for hardware complication. ACT 112: Negative or not required by law. Electronically signed by: Vel Cummings M.D. 10/26/2019 9:48 AM
[2019-10-26] MEDS ORDERED: OXYCODONE HCL IR 5 MG TAB (IMMEDIATE RELEASE) PO PRN (10:40)
[2019-10-26] MEDS ORDERED: HYDROmorphone INJ 0.5 MG/0.5 ML SYR IV PRN (10:40)
[2019-10-26] MEDS ORDERED: bisacodyL 10 MG SUPP PR PRN (10:40)
[2019-10-26] MEDS ORDERED: TAMSULOSIN HCL 0.4 MG CAP PO PRN (10:40)
[2019-10-26] MEDS ORDERED: METOCLOPRAMIDE HCL INJ 5 MG/ML 2 ML VIAL IV PRN (10:40)
[2019-10-26] MEDS ORDERED: MAGNESIUM HYDROXIDE SUSP 30 ML UDC PO PRN (10:40)
[2019-10-26] MEDS ORDERED: NALOXONE HCL 0.4 MG/1 ML VIAL/CARP IV PRN (10:40)
[2019-10-26] MEDS ORDERED: ALUMINUM/MAGNESIUM SUSP 30 ML UDC PO PRN (10:40)
--- NOTE | 2019-10-26 11:01 | Anesthesiology Progress Note ---
Date of Service October 26, 2019 Anesthesia Post Procedure Vital Signs Vital Signs: Temp Pulse Pulse Pulse Resp BP BP 10/26/19 10:54 79 16 148/75 H 10/26/19 10:25 36.7 C 76 18 138/68 10/26/19 10:00 70 15 115/54 L 10/26/19 09:50 36.4 C L 70 15 121/67 10/26/19 09:40 71 16 133/71 10/26/19 09:30 75 17 142/68 H 10/26/19 09:21 36.9 C 84 14 140/67 10/26/19 05:34 36.5 C 84 20 149/74 H Pulse Ox 10/26/19 10:54 95 10/26/19 10:25 94 10/26/19 10:00 92 10/26/19 09:50 93 10/26/19 09:40 94 10/26/19 09:30 94 10/26/19 09:21 95 10/26/19 05:34 96 Pain Intensity Left Knee: Pain Intensity: 0 Transfer of Care Handoff Completed per policy Notes Mental Status: alert / awake / arousable Patient Amnestic to Procedure: Yes Nausea / Vomiting: adequately controlled Pain: adequately controlled Airway Patency, RR, SpO2: stable & adequate BP & HR: stable & adequate Hydration State: stable & adequate Neuraxial Anesthesia: was administered and sensory block is resolving Anesthetic Complications: no major complications apparent
[2019-10-26] MEDS: SODIUM CHLORIDE 0.9% 1000ML 1,000 ML IV SCH ×2 (12:08→18:43)
[2019-10-26] MEDS: KETOROLAC 30 MG/ML VIAL IV SCH ×2 (12:08→17:42)
[2019-10-26] MEDS: CEFAZOLIN 2000MG 2,000 MG/15 ML SYR IV SCH ×2 (14:03→22:21)
[2019-10-26] MEDS: ACETAMINOPHEN 500 MG TAB PO SCH ×2 (14:04→22:21)
[2019-10-26] MEDS: CHECK SCOPOLAMINE PATCH PLACEMENT SCH (15:10)
[2019-10-26] MEDS ORDERED: TRANEXAMIC ACID / 0.7% NACL 1,000 MG/100 ML BAG IV SCH (15:24)
--- NOTE | 2019-10-26 15:26 | Progress Notes ---
DATE: 10/26/2019 SUBJECTIVE: A 59-year-old gentleman postop from a left knee replacement. He is doing well. Not really having much pain yet. No chest pain or shortness of breath. Not feeling dizzy or lightheaded. OBJECTIVE: VITAL SIGNS: Temperature 36.7. Vital signs stable. GENERAL: Shows a pleasant, middle-aged male. He is sitting up in bed, looks completely comfortable. LUNGS: Clear to auscultation. HEART: Has a regular rate and rhythm. ABDOMEN: Soft, nontender, nondistended. EXTREMITIES: Grossly neurovascularly intact except as follows. Examination of the left leg reveals the leg to be well aligned. Dressing is clean, dry, and intact. He can dorsiflex and plantarflex his foot appropriately. He is neurologically intact. He has got brisk refill. X-RAYS: X-rays of the left knee from recovery room reviewed. It shows a left cemented posterior stabilized total knee arthroplasty. Components looked to be in good position. No signs of problems. ASSESSMENT: A 59-year-old gentleman postop from a left knee replacement, doing pretty well. His pain is controlled. He is neurologically intact. PLAN: 1. DVT prophylaxis including thigh-high TEDs, SCDs, and aspirin twice a day. 2. PT/OT. Weight bear as tolerated. Left total knee protocol. 3. Pain control, doing well with current pain regimen. 4. IV antibiotics x24 hours. 5. Disposition: Plan to discharge to home or his mother's house with some home health once adequately recovered and medically stable.
[2019-10-26] MEDS: FERROUS GLUCONATE 324 MG TAB PO SCH (17:40)
[2019-10-26] MEDS: ASPIRIN 81 MG ECTAB PO SCH (20:39)
[2019-10-26] MEDS: DOCUSATE SODIUM 100 MG CAP PO SCH ×2 (20:40→20:45)
[2019-10-26] MEDS: TAPENTADOL HCL ER 50 MG TABCR PO SCH (20:40)
[2019-10-26] MEDS: SENNA 8.6 MG TAB PO SCH ×2 (20:40→20:45)
[2019-10-27] MEDS: CHECK SCOPOLAMINE PATCH PLACEMENT SCH ×2 (00:20→07:34)
[2019-10-27] MEDS: KETOROLAC 30 MG/ML VIAL IV SCH ×2 (00:20→06:22)
[2019-10-27 05:46] LABS: Hematocrit (blood only) 34.4 % (42-52); Hemoglobin 11.4 g/dL (14.0-18.0); Mean Corpuscular Hemoglobin 29.9 pg (25-34); Mean Corpuscular Hgb Conc 33.1 g/dL (32-36); Mean Corpuscular Volume 90.3 fL (80-100); Mean Platelet Volume 10.8 fL (7.4-10.4); Platelet Count 198 K/uL (130-400); RDW Coefficient of Variation 15.2 % (11.5-14.5); RDW Standard Deviation 50.7 fL (36.4-46.3); Red Blood Count 3.81 M/uL (4.7-6.1); White Blood Count 9.72 K/uL (4.8-10.8)
[2019-10-27 06:19] LABS: BUN Creatinine Ratio 14.9 (10-20); Calcium 8.2 mg/dl (8.5-10.1); Creatinine Clr Calc Pharmacy 108.3 ml/min; Est GFR (African American) 99.7; Est GFR (Non-African American) 86.1; Potassium 3.8 mmol/L (3.5-5.1)
[2019-10-27] MEDS: ACETAMINOPHEN 500 MG TAB PO SCH (06:21)
[2019-10-27] MEDS ORDERED: LEVOTHYROXINE SODIUM 25 MCG TABLET PO SCH (06:30)
[2019-10-27] MEDS: TAPENTADOL HCL ER 50 MG TABCR PO SCH (07:36)
[2019-10-27] MEDS: FERROUS GLUCONATE 324 MG TAB PO SCH (07:36)
[2019-10-27] MEDS: ASPIRIN 81 MG ECTAB PO SCH (07:36)
[2019-10-27] MEDS: DOCUSATE SODIUM 100 MG CAP PO SCH (07:36)
[2019-10-27] MEDS ORDERED: FLUOXETINE HCL 20 MG CAP PO SCH (09:00)
[2019-10-27] MEDS ORDERED: MULTIVITAMIN TAB PO SCH (09:00)
--- NOTE | 2019-10-27 09:07 | Progress Notes ---
DATE: 10/27/2019 SUBJECTIVE: A 59-year-old gentleman postop day 1 from a left knee replacement. He is doing pretty well. Pain is controlled. Had a pretty good night. He says his knee so far is going quite a bit easier than his other knee. OBJECTIVE: VITAL SIGNS: Temperature 36.7. Vital signs stable. GENERAL: Shows a pleasant, middle-aged male. He is sitting up in bed, looks pretty comfortable. EXTREMITIES: Examination of the left leg reveals the leg to be well aligned. Dressing is clean, dry, and intact. He can dorsiflex and plantarflex his foot appropriately. He is neurologically intact. LABORATORY DATA: Hemoglobin is 11.4. Hematocrit 34.4. Electrolytes are stable. ASSESSMENT: A 59-year-old gentleman postop day 1 from a left knee replacement, doing pretty well. Pain is controlled. PLAN: 1. DVT prophylaxis including thigh-high TEDs, SCDs, and aspirin twice a day. 2. PT/OT. Weight bear as tolerated. Left total knee protocol. 3. Pain control, doing pretty well with current pain regimen. 4. Disposition. He is planning to be discharged home with some home health. We will see how therapy goes today. If he is doing okay he is hoping to go home this afternoon.
--- NOTE | 2019-10-27 12:58 | Anesthesiology Progress Note ---
Date of Service October 27, 2019 Anesthesia Post Procedure Vital Signs Vital Signs: Temp Pulse Pulse Resp BP Pulse Ox 10/27/19 11:12 36.5 C 79 20 138/73 93 10/27/19 11:06 36.7 C 76 74 18 130/74 95 10/27/19 09:11 36.7 C 76 74 18 130/74 95 10/27/19 07:39 36.7 C 74 18 130/74 95 10/27/19 03:35 36.7 C 74 19 113/66 98 10/26/19 23:37 37.6 C H 81 19 113/58 L 95 10/26/19 22:03 36.9 C 76 20 164/52 H 96 10/26/19 15:36 36.8 C 72 16 107/65 96 10/26/19 13:26 73 16 122/52 L 95 Pain Intensity Left Knee: Pain Intensity: 2 Notes Mental Status: alert / awake / arousable and participated in evaluation Patient Amnestic to Procedure: Yes Nausea / Vomiting: adequately controlled Pain: adequately controlled Airway Patency, RR, SpO2: stable & adequate BP & HR: stable & adequate Hydration State: stable & adequate Neuraxial Anesthesia: was administered and sensory block is resolving Anesthetic Complications: no major complications apparent and Pt Satisfied with anesthetic care
--- NOTE | 2019-11-02 08:05 | Discharge Summary ---
Date of Service November 02, 2019 Admission HPI Per Admitting Provider 59 year old white male with a long history of left knee pain. He had a previous right knee replacement done in July 2018 and a left hip replacement done in November 2016. He continues to complain of severe left knee pain. His pain is worse with walking and with stairs. He has had conservative measures such as injections that provide only minimal relief and he was ready to proceed with the left TKA that we offered him. Admission Exam (Per Admitting) Constitutional WD/WN, vitals as above Eyes PERRL, conjunctivae normal, anicteric sclerae ENMT external ear and nose normal, oropharynx normal Neck trachea midline, no thyromegaly normal visual inspection Respiratory normal respiratory effort; no labored breathing Cardiovascular Rate/Rhythm: regular rate Gastrointestinal (Abdomen) Inspection/Auscultation: abdomen normal to inspection Musculoskeletal no cyanosis or clubbing, extremities motor strength 5/5 Knee: + limited ROM of knee (10 degrees flexion contraction. Flexion to 120 degrees.) Skin no rashes, warm and dry Psychiatric A+Ox3, euthymic affect Discharge Data Consultations 10/26/19 10:40 Consult Case Management - Discharge Planning Routine Procedures Performed Operation Date: 10/26/19 07:00 Actual Procedures p Left Total Knee Arthroplasty(Left) - Alvin Dale MD Hospital Course (1) Arthritis of knee, left: Patient was admitted on 10/26/2019 to undergo a left total knee arthroplasty. He tolerated the procedure well and was taken to recovery before admitted to the floor. He began to work with PT and OT. On post-op day number 1 he was continuing to improve was cleared by PT and was discharged to home with home health. Discharge Instructions He is weight bearing as tolerated on affected extremity. He will begin home PT/OT. He is to wear his TEDs and take Aspirin BID for 6 weeks for DVT prophylaxis. No soaking his incision. He is to keep his incision clean and dry. He will follow up with Dr. Dale in 2 weeks. Oxycodone and Tylenol for pain. Supervising Physician Co-Signing Physician Notes Dr. Alvin Dale Coding Level of Care Code None Diagnoses Arthritis of knee, left M17.12
== END 2019-10-27 12:14 | disposition home health service (06) ==
LOC: ASU 05:03 → 3E 05:03